=== PATIENT | female | born 1940 ===

== ENCOUNTER 2019-10-14 00:31 | Emergency (ER) ==
--- NOTE | 2019-10-14 03:00 | RADIOLOGY REPORT (SQ) ---
EXAM DESCRIPTION: CT HEAD WITHOUT IV CONTRAST COMPLETED DATE/TME: 10/14/2019 00:00 CLINICAL HISTORY: 79 years, Female, fall, COMPARISON: None. TECHNIQUE: Axial CT images of the brain were obtained without contrast. Sagittal and coronal reformats were performed. DL 1070 Images stored on PACS. All CT scanners at this facility use dose modulation, iterative reconstruction, and/or weight based dosing when appropriate to reduce radiation dose to as low as reasonably achievable (ALARA). [facility]: Dose Right [facility]: CareDose [facility]: Dose Right [facility]: Teradose 4D [facility]: [employer] LIMITATIONS: None. FINDINGS: There is soft tissue swelling along the left periorbital soft tissues with a 9 mm hematoma. The globes are intact. There is no retro-orbital hematoma. There is no acute cortical infarct, hemorrhage, mass, edema, hydrocephalus, or extra-axial fluid collection. There is mild diffuse cerebral atrophy with mild periventricular and deep white matter chronic microvascular changes. The paranasal sinuses are clear. There is a mild amount of fluid within the left mastoid air cells. No depressed calvarial fracture. IMPRESSION: Soft tissue swelling with a hematoma along the left periorbital soft tissues. No acute intracranial abnormality. TECHNICAL DOCUMENTATION: Quality ID # 436: Final reports with documentation of one or more dose reduction techniques (e.g., Automated exposure control, adjustment of the mA and/or kV according to patient size, use of iterative reconstruction technique) copyright 2011 [employer]- All Rights Reserved
--- NOTE | 2019-10-14 03:02 | RADIOLOGY REPORT (SQ) ---
EXAM DESCRIPTION: CT CERVICAL SPINE WITHOUT IV CONTRAST COMPLETED DATE/TME: 10/14/2019 00:00 CLINICAL HISTORY: 79 years, Female, fall, COMPARISON: None. TECHNIQUE: Axial CT images of the cervical spine were obtained without contrast. Sagittal and coronal reformats were performed. DLP 400 Images stored on PACS. All CT scanners at this facility use dose modulation, iterative reconstruction, and/or weight based dosing when appropriate to reduce radiation dose to as low as reasonably achievable (ALARA). [facility]: Dose Right [facility]: CareDose [facility]: Dose Right [facility]: Teradose 4D [facility]: [employer] LIMITATIONS: None. FINDINGS: There is mild grade 1 anterolisthesis of C4 over C5 and C5 over C6. There is no acute fracture or subluxation. The craniocervical junction is intact. The odontoid process is intact. There is multilevel spondylosis, most severe at C5-C6 with disc space narrowing, endplate sclerosis, subchondral cysts and marginal osteophytes. There is multilevel facet arthropathy. There is severe right-sided neural foraminal narrowing at C5-C6. The visualized lung apices are clear. IMPRESSION: No acute fracture or subluxation involving the cervical spine. TECHNICAL DOCUMENTATION: Quality ID # 436: Final reports with documentation of one or more dose reduction techniques (e.g., Automated exposure control, adjustment of the mA and/or kV according to patient size, use of iterative reconstruction technique) copyright 2011 [employer]- All Rights Reserved
--- NOTE | 2019-10-14 03:04 | RADIOLOGY REPORT (SQ) ---
EXAM DESCRIPTION: CT MAXILLOFACIAL WITHOUT IV CONTRAST COMPLETED DATE/TME: 10/14/2019 00:00 CLINICAL HISTORY: 79 years, Female, fall COMPARISON: None. TECHNIQUE: Axial CT images of the maxillofacial region were obtained without contrast. Sagittal and coronal reformats were performed. DLP 571 Images stored on PACS. All CT scanners at this facility use dose modulation, iterative reconstruction, and/or weight based dosing when appropriate to reduce radiation dose to as low as reasonably achievable (ALARA). [facility]: Dose Right [facility]: CareDose [facility]: Dose Right [facility]: Teradose 4D [facility]: [employer] LIMITATIONS: None. FINDINGS: There is soft tissue swelling along the left forehead and left periorbital soft tissues. There is a 9 mm hematoma. The globes are intact. There is no retro-orbital hematoma. Orbits are intact. The maxilla and mandible are intact. Degenerative changes affect the bilateral temporomandibular joints with joint space narrowing and remodeling of the mandibular condyles. The paranasal sinuses are clear. The zygomatic arches are intact. The nasal bones are intact. IMPRESSION: No acute fracture or subluxation involving the maxillofacial bones. TECHNICAL DOCUMENTATION: Quality ID # [id number]: Final reports with documentation of one or more dose reduction techniques (e.g., Automated exposure control, adjustment of the mA and/or kV according to patient size, use of iterative reconstruction technique) copyright 2011 [employer]- All Rights Reserved
== END 2019-10-14 05:30 | disposition left against medical advice (07) ==
LOC: ER 00:31
DX: Z53.21 Procedure and treatment not carried out due to patient leaving prior to being seen by health care provider (principal)
CPT/HCPCS: 70450; 70486; 72125